=== PATIENT | male | born 1980 | race Caucasian/White ===

== ENCOUNTER 2017-07-15 11:30 | Inpatient (IN) | payer BC ==
[2017-07-23] MEDS ORDERED: Scopolamine 1.5 MG Transdermal Patch TOP SCH (09:00)
[2017-07-23] MEDS ORDERED: Acetaminophen 500 MG Tab PO ONE (09:00)
[2017-07-23] MEDS ORDERED: Celecoxib 200 MG Cap PO ONE (09:00)
[2017-07-23] MEDS ORDERED: Gabapentin 300 MG Cap PO ONE (09:00)
[2017-07-23] MEDS ORDERED: Dextrose 5%-Lactated Ringers 1,000 ML IV SCH ×2 (10:00→16:45)
[2017-07-23] MEDS ORDERED: Dexamethasone 4 MG/ML SDV ONE (10:39)
[2017-07-23] MEDS ORDERED: Neostigmine Methylsulfate 1 MG/ML 5 ML Syringe ONE (10:39)
[2017-07-23] MEDS ORDERED: Ondansetron 4 MG/2 ML SDV ONE (10:39)
[2017-07-23] MEDS ORDERED: Succinylcholine/Normal Saline 200 MG/10 ML Syringe ONE (10:39)
[2017-07-23] MEDS ORDERED: Propofol 200 MG/20 ML SDV ONE (10:39)
[2017-07-23] MEDS ORDERED: Rocuronium 50 MG/5 ML Vial ONE ×2 (10:39→14:34)
[2017-07-23] MEDS ORDERED: cefOXitin 2 GM Vial ONE (10:55)
[2017-07-23] MEDS ORDERED: Levofloxacin/Dextrose 5%-Water 500 MG in Premix Bag 1 BAG IV ONE (11:00)
[2017-07-23] MEDS ORDERED: Lidocaine 2% 100 MG/5 ML Syringe IVPUSH ONE (11:00)
[2017-07-23] MEDS ORDERED: Ropivacaine 58 ML, Dexamethasone 8 MG, EPINEPHrine 0.4 MG, Sodium Chloride 0.9% 19.6 ML NERVRT SCH ×4 (11:00)
[2017-07-23] MEDS ORDERED: Ketamine 500 MG/5 ML MDV IV SCH (11:00)
[2017-07-23] MEDS ORDERED: Levofloxacin 500 MG/20 ML SDV ONE (11:12)
[2017-07-23] MEDS ORDERED: Labetalol 20 MG/4 ML Syringe ONE (14:34)
[2017-07-23] MEDS ORDERED: fentaNYL 100 MCG/2 ML SDV ONE (14:35)
[2017-07-23] MEDS: Lidocaine 0.4%/D5W 2 GM/500 ML BAG IV SCH (15:45)
[2017-07-23] MEDS ORDERED: hydrOXYzine HCl 100 MG/2 ML SDV IM PRN (17:00)
[2017-07-23] MEDS ORDERED: Metoclopramide 10 MG/2 ML SDV IVPUSH PRN (17:00)
[2017-07-23] MEDS ORDERED: Labetalol 20 MG/4 ML Syringe IVPUSH PRN (17:00)
[2017-07-23] MEDS ORDERED: Pantoprazole 40 MG Vial IVPUSH SCH (17:00)
[2017-07-23] MEDS ORDERED: Ondansetron 4 MG/2 ML SDV IVPUSH PRN (17:00)
[2017-07-23] MEDS ORDERED: diphenhydrAMINE 50 MG/ML SDV IVPUSH PRN (17:00)
[2017-07-23] MEDS: Acetaminophen Soln 650 MG/20.3 ML UD Cup PO SCH (17:43)
[2017-07-23] MEDS: Heparin Sodium 5,000 Units/ML Vial SUBCUT SCH (17:44)
[2017-07-23] MEDS ORDERED: MVI, Adult with Vitamin K 10 ML, Thiamine 200 MG, Chromium/Copper/Mang/Selen/Zn 1 ML in... IV SCH ×4 (18:00)
[2017-07-23] MEDS: Gabapentin 250 MG/5 ML Solution ML 470 ML Bottle PO SCH (21:11)
[2017-07-24] MEDS: Heparin Sodium 5,000 Units/ML Vial SUBCUT SCH ×3 (01:17→18:51)
[2017-07-24] MEDS: Acetaminophen Soln 650 MG/20.3 ML UD Cup PO SCH ×4 (01:20→18:51)
[2017-07-24] MEDS ORDERED: Iohexol 647 MG/ML 50 ML SDV PO STA (04:03)
[2017-07-24] MEDS: Lidocaine 0.4%/D5W 2 GM/500 ML BAG IV SCH (04:33)
[2017-07-24] MEDS: Celecoxib 200 MG Cap PO SCH (07:49)
[2017-07-24] MEDS ORDERED: Ondansetron 4 MG Tab.DIS PO PRN (08:04)
[2017-07-24] MEDS ORDERED: Zolpidem 5 MG Tab PO PRN (08:05)
[2017-07-24] MEDS ORDERED: Dextrose 5%-Lactated Ringers 1,000 ML IV SCH (08:15)
--- NOTE | 2017-07-24 08:52 | CR ---
Status post Jose J-en-Y. Contrast within small bowel loops. No gross leakage.
[2017-07-24] MEDS: Gabapentin 250 MG/5 ML Solution ML 470 ML Bottle PO SCH ×3 (09:13→20:27)
[2017-07-24] MEDS: SCOPOLAMINE PATCH CHECK TOP SCH (09:13)
[2017-07-24] MEDS: Febuxostat 40 MG Tab PO SCH (09:14)
--- NOTE | 2017-07-24 09:49 | PCM.SURGPN ---
- General Info Date of Service: 07/24/17 Date of Surgery/Procedure: 07/23/17 POD#: 1 Post-Op Diagnosis: S/P Gastric sleeve Admission Diagnosis/Problem: Obesity Functional Status: Reports: Pain Controlled, Tolerating Diet, Ambulating, Urinating Pain Score: 1 - Review of Systems General: Reports: No Symptoms HEENT: Reports: No Symptoms Pulmonary: Reports: No Symptoms Cardiovascular: Reports: No Symptoms Gastrointestinal: Reports: No Symptoms Genitourinary: Reports: No Symptoms Musculoskeletal: Reports: No Symptoms Skin: Reports: No Symptoms Neurological: Reports: No Symptoms Psychiatric: Reports: No Symptoms - Patient Data Vitals - Most Recent: Last Vital Signs Temp 36.9 C 07/24/17 06:58 Pulse 90 07/24/17 06:58 Resp 16 07/24/17 06:58 BP 121/75 07/24/17 06:58 Pulse Ox 94 L 07/24/17 07:35 Weight - Most Recent: 113.398 kg I&O - Last 24 Hours: Intake & Output 07/23/17 07/24/17 07/24/17 22:59 06:59 14:59 Intake Total 710 2474 468 Output Total 20 3420 990 Balance 947 -900 -563 Lab Results Last 24 Hrs: Laboratory Results - last 24 hr 07/23/17 Range/Units 08:58 Blood Type A POSITIVE Gel Antibody Screen Negative Med Orders - Current: Current Medications Acetaminophen (Tylenol) 650 mg PO Q6H [facility] Last Admin: 07/24/17 05:08 Dose: 650 mg Celecoxib (Celebrex) 200 mg PO DAILY@0800 [facility] Last Admin: 07/24/17 07:49 Dose: 200 mg Cyanocobalamin (Vitamin B12) 1,000 mcg IM ONETIME ONE Stop: 07/25/17 09:01 Febuxostat (Uloric) 40 mg PO DAILY [facility] Last Admin: 07/24/17 09:14 Dose: 40 mg Gabapentin (Neurontin) 300 mg PO TID [facility] Last Admin: 07/24/17 09:13 Dose: 300 mg Heparin Sodium (Porcine) (Heparin Sodium) 5,000 units SUBCUT Q8H [facility] Last Admin: 07/24/17 01:17 Dose: 5,000 units Hydroxyzine HCl (Vistaril) 75 - 100 mg IM Q4H PRN PRN Reason: pain Lidocaine HCl/Dextrose (Lidocaine 2 Gm/D5w 500 Ml) 2 gm in 500 mls @ 30 mls/hr IV .[id number] [facility] PRN Reason: 2 MG/MIN Stop: 07/24/17 14:00 Last Admin: 07/24/17 04:33 Dose: 2 mg/min, 30 mls/hr Dextrose/Lactated Ringer's (Dextrose 5%-Lactated Ringers) 1,000 mls @ 100 mls/ hr IV ASDIRECTED [facility] Miscellaneous Information (Remove Patch) 1 ea TRDERM ONETIME ONE Stop: 07/25/17 10:01 Scopolamine Patch (Check) 1 each TOP DAILY [facility] Stop: 07/25/17 17:01 Last Admin: 07/24/17 09:13 Dose: Not Given Ondansetron HCl (Zofran Odt) 4 mg PO Q4H PRN PRN Reason: Nausea/Vomiting Scopolamine (Transderm-Scop) 1.5 mg TOP Q72H [facility] Stop: 07/25/17 10:00 Last Admin: 07/23/17 09:23 Dose: 1.5 mg Zolpidem Tartrate (Ambien) 10 mg PO BEDTIME PRN PRN Reason: Insomnia Discontinued Medications Acetaminophen (Tylenol Extra Strength) 1,000 mg PO ONETIME ONE Stop: 07/23/17 09:01 Last Admin: 07/23/17 09:23 Dose: 1,000 mg Cefoxitin Sodium (Mefoxin) Confirm Administered Dose 2 gm .ROUTE .STK-MED ONE Stop: 07/23/17 10:56 Celecoxib (Celebrex) 200 mg PO ONETIME ONE Stop: 07/23/17 09:01 Last Admin: 07/23/17 09:23 Dose: 200 mg Ropivacaine 58 ml/Dexamethasone 8 mg/Epinephrine HCl 0.4 mg/ Sodium Chloride 19.6 ml 0 ml NERVRT ASDIRECTED [facility] Last Admin: 07/23/17 12:53 Dose: 80 syringe Dexamethasone (Dexamethasone) Confirm Administered Dose 4 mg .ROUTE .STK-MED ONE Stop: 07/23/17 10:40 Diphenhydramine HCl (Benadryl) 25 - 50 mg IVPUSH Q4H PRN PRN Reason: ITCHING Fentanyl (Sublimaze) Confirm Administered Dose 100 mcg .ROUTE .STK-MED ONE Stop: 07/23/17 14:36 Fentanyl Citrate (Fentanyl) Confirm Administered Dose 500 mcg .ROUTE .STK-MED ONE Stop: 07/23/17 10:40 Gabapentin (Neurontin) 300 mg PO ONETIME ONE Stop: 07/23/17 09:01 Last Admin: 07/23/17 09:23 Dose: 300 mg Glycopyrrolate () Confirm Administered Dose 1 mg .ROUTE .STK-MED ONE Stop: 07/23/17 10:40 Dextrose/Lactated Ringer's (Dextrose 5%-Lactated Ringers) 1,000 mls @ 100 mls/ hr IV ASDIRECTED [facility] Last Admin: 07/23/17 09:23 Dose: 100 mls/hr Levofloxacin/Dextrose 500 mg/ (Premix) 100 mls @ 100 mls/hr IV ONETIME ONE Stop: 07/23/17 11:59 Last Admin: 07/23/17 12:20 Dose: 100 mls/hr Ketamine HCl 100 mg/ Sodium (Chloride) 100 mls @ 19.8 mls/hr IV ASDIRECTED [facility] PRN Reason: 5 MCG/KG/MIN Dextrose/Lactated Ringer's (Dextrose 5%-Lactated Ringers) 1,000 mls @ 175 mls/ hr IV [facility]RECTTWO [facility] Last Admin: 07/24/17 05:08 Dose: 175 mls/hr Multivitamins/Minerals 10 ml/Thiamine HCl 200 mg/ Chromium/Copper/Manganese/ Seleni/Zn 1 ml/ Dextrose/Lactated Ringer's 1,013 mls @ 175 mls/hr IV DAILY@ 1600 [facility] Last Admin: 07/23/17 17:44 Dose: 175 mls/hr Levofloxacin/Dextrose 500 mg/ (Premix) 100 mls @ 100 mls/hr IV Q24H [facility] Stop: 07/25/17 12:59 Iohexol (Omnipaque-300) 50 ml PO .ASDIRECTED [facility] Stop: 07/24/17 04:04 Last Admin: 07/24/17 04:11 Dose: 50 ml Ketamine HCl (Ketalar) 33 mg IV ASDIRECTED [facility] Labetalol HCl (Normodyne) Confirm Administered Dose 20 mg .ROUTE .STK-MED ONE Stop: 07/23/17 14:35 Labetalol HCl (Normodyne) 5 - 15 mg IVPUSH Q1H PRN PRN Reason: SBP over 160 OR DBP over 95 Levofloxacin (Levaquin) Confirm Administered Dose 500 mg .ROUTE .STK-MED ONE Stop: 07/23/17 11:13 Last Admin: 07/23/17 13:16 Dose: 500 mg Lidocaine HCl (Xylocaine 2%) 125 mg IVPUSH ONETIME ONE Stop: 07/23/17 11:01 Last Admin: 07/23/17 15:46 Dose: Not Given Metoclopramide HCl (Reglan) 10 mg IVPUSH Q6H PRN PRN Reason: NAUSEA NOT CONTROL BY ZOFRAN Neostigmine Methylsulfate (Neostigmine) Confirm Administered Dose 5 mg .ROUTE .STK-MED ONE Stop: 07/23/17 10:40 Ondansetron HCl (Zofran) Confirm Administered Dose 4 mg .ROUTE .STK-MED ONE Stop: 07/23/17 10:40 Ondansetron HCl (Zofran) 4 mg IVPUSH Q4H PRN PRN Reason: Nausea/Vomiting Pantoprazole Sodium (Protonix Iv) 40 mg IVPUSH Q24H [facility] Last Admin: 07/23/17 17:44 Dose: 40 mg Propofol (Diprivan 20 Ml) Confirm Administered Dose 200 mg .ROUTE .STK-MED ONE Stop: 07/23/17 10:40 Rocuronium [place] (Zemuron) Confirm Administered Dose 50 mg .ROUTE .STK-MED ONE Stop: 07/23/17 10:40 Rocuronium [place] (Zemuron) Confirm Administered Dose 50 mg .ROUTE .STK-MED ONE Stop: 07/23/17 14:35 Sodium Chloride (Normal Saline) 500 ml IRR .STK-MED ONE Stop: 07/23/17 13:18 Last Admin: 07/23/17 13:17 Dose: 500 ml Succinylcholine Chloride (Succinylcholine In Ns Pf) Confirm Administered Dose 200 mg .ROUTE .STK-MED ONE Stop: 07/23/17 10:40 - Exam Wound/Incisions: Healing Well General: Alert, Oriented HEENT: Pupils Equal Neck: Supple Lungs: Clear to Auscultation, Normal Respiratory Effort Cardiovascular: Regular Rate, Regular Rhythm GI/Abdominal Exam: Normal Bowel Sounds, Soft, Non-Tender, No Organomegaly, No Distention, No Abnormal Bruit, No Mass, Pelvis Stable Extremities: Normal Inspection, Normal Range of Motion, Non-Tender, No Pedal Edema, Normal Capillary Refill Skin: Warm, Dry, Intact Neurological: No New Focal Deficit Psy/Mental Status: Alert, Normal Affect, Normal Mood - Problem List Review Problem List Initiated/Reviewed/Updated: Yes - My Orders Last 24 Hours: Active Orders 24 hr Category Date Time Status Patient Status [ADT] Routine ADT 07/23/17 14:50 Active Ambulate [RC] ASDIRECTED Care 07/23/17 16:19 Active Cardiac Monitoring Discontinue [RC] Click to Edit Care 07/24/17 08:04 Active Cardiac Monitoring [RC] .As Directed Care 07/23/17 16:19 Active Communication Order [RC] ASDIRECTED Care 07/25/17 04:00 Active Communication Order [RC] BID Care 07/23/17 16:25 Active Communication Order [RC] Q4H Care 07/23/17 16:19 Active Communication Order [RC] ROUTINE Care 07/23/17 16:19 Active Drain Management [RC] ASDIRECTED Care 07/23/17 16:19 Active Head of Bed Elevation [RC] CONTINUOUS Care 07/23/17 16:19 Active Intake and Output [RC] ASDIRECTED Care 07/23/17 16:19 Active May Shower [RC] ASDIRECTED Care 07/24/17 08:04 Active Notify Provider Intake and Out [RC] ASDIRECTED Care 07/23/17 16:19 Active Notify Provider [RC] PRN Care 07/23/17 16:19 Active Oxygen Therapy [RC] ASDIRECTED Care 07/23/17 16:19 Active Pneumonia Education [RC] .PRN Care 07/23/17 16:19 Active Pulse Oximetry [RC] ASDIRECTED Care 07/23/17 16:19 Active RT BiPAP/CPAP [RC] ASDIRECTED Care 07/23/17 16:22 Active RT Incentive Spirometry [RC] Q1HWA Care 07/23/17 16:19 Active Turn, Cough, Deep Breathe [RC] Q1HWA Care 07/23/17 16:19 Active Up to Chair [RC] TIDMEALS Care 07/23/17 16:19 Active Vital Signs [RC] PER UNIT ROUTINE Care 07/23/17 16:19 Active Consult to Bariatric Services [CONS] Routine Cons 07/23/17 16:19 Active Consult to Casting Plug Assembler [CONS] Routine Cons 07/23/17 16:19 Active Consult to Pharmacy [CONS] Routine Cons 07/23/17 16:19 Active Respiratory Care Assess and Treatment [CONS] Routine Cons 07/23/17 16:19 Active Bariatric Diet [DIET] Diet 07/24/17 Breakfast Active Acetaminophen [Tylenol] Med 07/23/17 18:00 Active 650 mg PO Q6H Celecoxib [CeleBREX] Med 07/24/17 08:00 Active 200 mg PO DAILY@0800 Cyanocobalamin (Vitamin B12) [Vitamin B12] Med 07/25/17 09:00 Once 1,000 mcg IM ONETIME ONE Dextrose 5%-Lactated Ringers 1,000 ml Med 07/24/17 08:15 Active IV ASDIRECTED Febuxostat [Uloric] Med 07/24/17 09:00 Active 40 mg PO DAILY Gabapentin [Neurontin] Med 07/23/17 21:00 Active 300 mg PO TID Heparin Sodium Med 07/23/17 18:00 Active 5,000 units SUBCUT Q8H Lidocaine 0.4%/D5W [Lidocaine 2 GM/D5W 500 ML] Med 07/23/17 11:00 Active 2 gm in 500 ml IV 2 mg/min Non-Formulary Medication [NF Drug] Med 07/23/17 17:00 Active 1 each TOP DAILY Ondansetron [Zofran ODT] Med 07/24/17 08:04 Active 4 mg PO Q4H PRN Remove Patch Med 07/25/17 10:00 Once 1 ea TRDERM ONETIME ONE Scopolamine [Transderm-Scop] Med 07/23/17 09:00 Active 1.5 mg TOP Q72H Zolpidem [Ambien] Med 07/24/17 08:05 Active 10 mg PO BEDTIME PRN hydrOXYzine HCl [Vistaril] Med 07/23/17 17:00 Active 75 - 100 mg IM Q4H PRN Abdominal Binder [OM.PC] Routine Oth 07/23/17 16:19 Ordered Convert IV to Saline Lock [OM.PC] Routine Oth 07/24/17 08:04 Ordered Oral Care [OM.PC] BID Oth 07/23/17 16:30 Ordered Oral Care [OM.PC] BID Oth 07/24/17 16:30 Ordered PT Screening [OM.PC] Routine Oth 07/23/17 16:19 Active SCD [Sequential Compression Device] [OM.PC] Routine Oth 07/23/17 09:00 Ordered Specialty Bed [OM.PC] Routine Ot 07/23/17 16:19 Ordered Resuscitation Status Routine Resus Stat 07/23/17 16:18 Ordered Medication Orders Acetaminophen (Tylenol) 650 mg PO Q6H [facility] Last Admin: 07/24/17 05:08 Dose: 650 mg Admin: 07/24/17 01:20 Dose: 650 mg Admin: 07/23/17 17:43 Dose: 650 mg Celecoxib (Celebrex) 200 mg PO DAILY@0800 [facility] Last Admin: 07/24/17 07:49 Dose: 200 mg Cyanocobalamin (Vitamin B12) 1,000 mcg IM ONETIME ONE Stop: 07/25/17 09:01 Febuxostat (Uloric) 40 mg PO DAILY [facility] Last Admin: 07/24/17 09:14 Dose: 40 mg Gabapentin (Neurontin) 300 mg PO TID [facility] Last Admin: 07/24/17 09:13 Dose: 300 mg Admin: 07/23/17 21:11 Dose: 300 mg Heparin Sodium (Porcine) (Heparin Sodium) 5,000 units SUBCUT Q8H [facility] Last Admin: 07/24/17 01:17 Dose: 5,000 units Admin: 07/23/17 17:44 Dose: 5,000 units Hydroxyzine HCl (Vistaril) 75 - 100 mg IM Q4H PRN PRN Reason: pain Lidocaine HCl/Dextrose (Lidocaine 2 Gm/D5w 500 Ml) 2 gm in 500 mls @ 30 mls/hr IV .[id number] [facility] PRN Reason: 2 MG/MIN Stop: 07/24/17 14:00 Last Admin: 07/24/17 04:33 Dose: 2 mg/min, 30 mls/hr Infusion: 07/24/17 04:33 Dose: 2 mg/min, 30 mls/hr Admin: 07/23/17 15:45 Dose: 2 mg/min, 30 mls/hr Dextrose/Lactated Ringer's (Dextrose 5%-Lactated Ringers) 1,000 mls @ 100 mls/ hr IV ASDIRECTED [facility] Miscellaneous Information (Remove Patch) 1 ea TRDERM ONETIME ONE Stop: 07/25/17 10:01 Scopolamine Patch (Check) 1 each TOP DAILY TEA Stop: 07/25/17 17:01 Last Admin: 07/24/17 09:13 Dose: Ondansetron HCl (Zofran Odt) 4 mg PO Q4H PRN PRN Reason: Nausea/Vomiting Scopolamine (Transderm-Scop) 1.5 mg TOP Q72H TEA Stop: 07/25/17 10:00 Last Admin: 07/23/17 09:23 Dose: 1.5 mg Zolpidem Tartrate (Ambien) 10 mg PO BEDTIME PRN PRN Reason: Insomnia - Plan Plan (Free Text/Narrative):: Yaron is a 37 year male who is S/P sleeve gastrectomy. This morning the patient is doing great. he is ambulating, tolerating step 1 diet and is currently in no pain. he denies any nausea or vomiting. He also states that he is passing gas but no stool as of yet. He is afebrile and looks great on exam. His upper GI study looks good as well this AM> He currently has no further concerns or questions. # S/P sleeve gastrectomy- related to her surgery and incisions. He denied any pain at this time. - Continue Tylenol 1000 mg Po Q6hr PRN - Continue ENERGY protocol - Will continue to monitor - PRN Visteril - PRN Flexeril E.N.E.R.G.Y protocol - D/c lidocaine today - D/c scopolomine patch today - Continue 300mg POD TID gabapentin - Continue Celebrex 200 mg - Continue IV Protonix 40mg Q24hrs - Dietary consulted, thank you! Chronic issues: #continue home medications VTE PPX- 5000 units heparin Q12 hours. Pt advised to continue moving around. Pneumonia PPX- Pt advised to walk around and use incentive spirometry 10 times per hour Code status: full Fluids: 100 ml/hr Diet: Advance pt to step 2 diet Nausea: Zofran Q4hr or [place] Q6hr PRN Dispo: The patient will most likely go home tomorrow if she continues to progress. This chart was scribed for Dr. De Oliveira by: Edouard Sheriff, MS3 Pg# [phone]
[2017-07-24] MEDS ORDERED: Levofloxacin/Dextrose 5%-Water 500 MG in Premix Bag 1 BAG IV SCH (12:00)
[2017-07-25] MEDS: Acetaminophen Soln 650 MG/20.3 ML UD Cup PO SCH ×2 (00:12→06:24)
[2017-07-25] MEDS: Heparin Sodium 5,000 Units/ML Vial SUBCUT SCH ×2 (01:46→10:44)
[2017-07-25] MEDS: Gabapentin 250 MG/5 ML Solution ML 470 ML Bottle PO SCH (08:21)
[2017-07-25] MEDS: Febuxostat 40 MG Tab PO SCH (08:21)
[2017-07-25] MEDS: Celecoxib 200 MG Cap PO SCH (08:21)
[2017-07-25] MEDS: SCOPOLAMINE PATCH CHECK TOP SCH (08:22)
[2017-07-25] MEDS ORDERED: Cyanocobalamin (Vitamin B12) 1,000 MCG/ML SDV IM ONE (09:00)
--- NOTE | 2017-07-26 09:03 | DISCH ---
ADMISSION DIAGNOSES: Morbid obesity, hyperuricemia, liver dysfunction, depression, and insomnia. DISCHARGE DIAGNOSIS: Laparoscopic sleeve gastrectomy, liver biopsy, and repair of paraesophageal diaphragmatic hernia. Date of surgery 07/23/2017. HISTORY: Michel Davison is a 37-year-old male with longstanding history of morbid obesity and increase in the comorbidities. After preoperative evaluation and discussion of possible risks and possible complications, he wished to proceed with surgical procedure. HOSPITAL COURSE: Michel had his surgery on 07/23/2017. He had no operative complications. On postop day #1, his upper GI was normal, and he was started on step-2 gastric bypass diet with no cereal. On postop day #2, his activity was good. Pain was well managed. He received adequate nutritional education, and he was able to be discharged to home. PHYSICAL EXAMINATION: GENERAL: Michel is a 37-year-old male. VITAL SIGNS: Height is 5 feet 6 inches, weight is 250 pounds. TPR 98, 81, 16. Blood pressure 105/72. HEENT: Negative. NECK: Supple. HEART: Regular rate and rhythm. LUNGS: Clear. ABDOMEN: Incisions look good. 4x4 over YANN drain site. Abdominal binder has been on. EXTREMITIES: Without peripheral edema. DISPOSITION: Discharged to home. CONDITION: Stable and improving. FOLLOWUP APPOINTMENT: With Vida Obregon PA-C, on 07/30/2017 at 9:00 a.m., at [place], [place]. MEDICATIONS: Acetaminophen, Tylenol 650 mg chewable or liquid every 6 hours, scheduled for 2 weeks; Celebrex 200 mg p.o. daily 14 days; Uloric 80 mg p.o. daily; and zolpidem tartrate 10 mg oral at bedtime. DIET: Step-2 gastric bypass diet with no cereal until July. ACTIVITY: As tolerated. No lifting greater than 10 pounds for 2 weeks. Walk 6 times daily inside your home. Driving, do not drive for 1 week. Shower/bathing, may shower. DISCHARGE INSTRUCTIONS: Notify provider if any fever, increased pain, nausea, or vomiting. Keep site clean and dry. Wear abdominal binder for 2 weeks and then as tolerated. Special instruction; use incentive spirometer 10 times every hour while awake for 1 week, and keep a food journal and bring to clinic appointment.
--- NOTE | 2017-07-30 08:21 | OR ---
DATE OF PROCEDURE: 07/23/2017 PREOPERATIVE DIAGNOSIS: Morbid obesity. POSTOPERATIVE DIAGNOSES: 1. Morbid obesity. 2. Very marked hepatomegaly. 3. Paraesophageal diaphragmatic hernia. OPERATIVE PROCEDURES: 1. Laparoscopic sleeve gastrectomy (06892). 2. Wolf-Cut needle liver biopsy (68015). 3. Repair of paraesophageal diaphragmatic hernia with mesh (20477). ANESTHESIA: General. ASSISTANTS: Vida Obregon PA-C, and ELSI Robb3. INDICATION FOR PROCEDURE: This is a 37-year-old male presenting with longstanding morbid obesity and increasingly significant comorbidities. After preoperative evaluation and discussion, he wished to proceed with a sleeve gastrectomy. Potential risks including bleeding, infection, leaks from the staple line, as well as the possibility of cardiopulmonary, septic, or hemorrhagic complications leading to were discussed, and the patient wishes to proceed. DETAILS OF PROCEDURE: The patient was taken to the operating room and after general endotracheal anesthesia was induced, he was placed in a lithotomy position. Orogastric tube was placed, and the abdomen was prepped and draped. At 15 cm inferior and 5 cm left of xiphoid process, a transverse incision was made and the peritoneal cavity was entered under direct vision with an Optiview trocar and inflated to 15 mmHg pressure of CO2. Laparoscope was reinserted. No underlying trocar insertion site injuries were seen. With direct visualization of the needle tip in the transversus abdominis plane, bilateral transversus abdominis plane blocks were placed in the subcostal location with the standard solution. At this point, 5 additional trocars were placed across the upper and mid abdomen. The patient was noted to have quite striking hepatomegaly with the liver being grossly fatty infiltrated. There did not appear to be any obvious portal hypertension. Wolf-Cut needle biopsies were obtained from the left lower lobe of the liver. Minimal bleeding from the biopsy sites was controlled with electrocautery. At this point, in order to retract the liver, the original mid left subcostal trocar was required for assistance in retracting the liver. Given this, one additional 5 mm trocar was placed somewhat inferior to that to replace that as a working port. At this point, the omentum was divided beginning in the mid-lesser curvature with Harmonic scalpel. This was continued up through the short gastric vessels, including the highest posterior short gastric vessels, further dissection being the medial fundus and the left kelvin of the diaphragm was then accomplished. The patient was noted to have moderate diaphragmatic hernia at this point, and given this, the peritoneum on the right side of the esophagogastric junction was incised. This allowed dissection of the esophagus below and posteriorly, creating a retroesophageal window. The esophagus was then freed up such that it was roughly a 4 cm length of intraabdominal esophagus. Posterior crural repair was accomplished with 0 Ethibond sutures, reinforced with PTFE pledgets. This was also then reinforced with some Phasix ST mesh cut in a C-type configuration. This was laid in position without having to pull the fundus and was felt to stay in that position without additional fixation. This was oriented such that the side with the Seprafilm was facing the esophagus to avoid direct adhesions to that structure. The omentum was then taken down in a distal direction to a point 2 cm proximal to the pylorus. Some posterior areolar type adhesions between the body and antrum of the stomach were then taken down with Harmonic Scalpel as well. The point for the initial firings of the ZARIA stapler was then marked out beginning 2 cm proximal to the pylorus and continued somewhat to the left of the incisura angularis with care taken to avoid tightening into that. Once these areas were marked out, the initial 3 firings were accomplished with the ZARIA black loads. Following this then, a 32-Arabic suction tube was then placed per Anesthesia orally and directed along the lesser curvature and from there into the antrum. This was then pulled up against the lesser curvature wall, where the suction was applied, thus fixing the tube snuggly against that. Remainder of the sleeve gastrectomy was then accomplished with a combination of reinforced black and reinforced purple ZARIA loads. Upon completion of the resection, the staple line was inspected and found to be intact. At this point, the fibrin sealant was placed along the length of the staple line with primary focus on the proximal-most, as well as to a lesser extent, the antral area. The omentum was then pulled up and affixed to the staple line with assistance of some 3-0 Vicryl stitch as needed. The suction tube was then taken off suction and pulled up partially. With the duodenum being compressed, air was injected into the sleeve until it was tensely distended, and that area was being submerged with a cefoxitin-containing saline solution. No air bubbles or signs of leak or bleeding were seen at this point, and that tube was then removed. At this point, the specimen was removed through the right lateral trocar site without difficulty. A single Dajuan-Montano drain was then taken out through the left lateral trocar site and positioned adjacent to the upper aspect of the sleeve and from there into the splenic fossa. With no further problems noted, trocars were removed and the peritoneal cavity deflated. The incisions were closed with some 4-0 Vicryl stitch and the YANN drain likewise affixed with 4-0 Vicryl stitch. Physician sales assistant entertainment and media, Vida Obregon, played an essential role in assisting in this case, helping to position the patient, retract structures as needed, as well as suturing and cutting sutures when indicated. Her presence improved the patient's safety and decreased the operative time. Nolan De Oliveira MD /[id number]
== END 2017-07-25 11:02 | disposition home or self-care (01) | DRG 403 ==
LOC: JP.SDS 07-23 08:37 → JP.MS 07-23 08:37 → EDSTATUS 07-23 10:45 → JP.2SS 07-23 14:30
PROVIDERS: ADMIT Surgery; ATTEND Surgery
PROC: 0DB64Z3 Excision of Stomach, Percutaneous Endoscopic Approach, Vertical (ICD-10-PCS; principal; 2017-07-23)
PROC: 3E0T3BZ Introduction of Anesthetic Agent into Peripheral Nerves and Plexi, Percutaneous Approach (ICD-10-PCS; 2017-07-23)
PROC: 0FB24ZX Excision of Left Lobe Liver, Percutaneous Endoscopic Approach, Diagnostic (ICD-10-PCS; 2017-07-23)
PROC: 0BUT4JZ Supplement Diaphragm with Synthetic Substitute, Percutaneous Endoscopic Approach (ICD-10-PCS; 2017-07-23)
DX: E66.01 Morbid (severe) obesity due to excess calories (principal); Z68.41 Body mass index [BMI] 40.0-44.9, adult; G47.00 Insomnia, unspecified; E79.0 Hyperuricemia without signs of inflammatory arthritis and tophaceous disease; K76.89 Other specified diseases of liver; K44.9 Diaphragmatic hernia without obstruction or gangrene; Z88.1 Allergy status to other antibiotic agents; Z91.018 Allergy to other foods; Z88.0 Allergy status to penicillin; Z88.8 Allergy status to other drugs, medicaments and biological substances; Z91.048 Other nonmedicinal substance allergy status; R16.0 Hepatomegaly, not elsewhere classified; K76.0 Fatty (change of) liver, not elsewhere classified
CPT/HCPCS: 36415; 74240; 74240-26; 82962; 83735; 84100; 86850; 86900; 86901; 88307; 88313; A9270-GY; C1781; C9113; J0171; J0694; J1100; J1644; J1956; J2001; J2405; J2704; J2795; J3010; J3411; J3420; J7030; J7040; J7042; J7050; Q9967